=== PATIENT | female | born 1940 | race Caucasian/White ===

== ENCOUNTER 2017-10-17 11:03 | Emergency (ER) | payer MEDICARE, OTHER ==
[~2017-10-17] VITALS: Ht 170.2 cm; Wt 77.1 kg
[~2017-10-17 11:03] MED LIST: ENALAPRIL MALEA10 MG PO; NORCO 5-325 TA1 EACH PO; PREVACID15 M1 PO
[2017-10-17] MEDS ORDERED: TYLENOL325 MG PO (11:22)
[2017-10-17] MEDS ORDERED: DULCOLAX10 MG PR (11:23)
[2017-10-17] MEDS ORDERED: AMLODIPINE BESY10 MG PO (11:23)
[2017-10-17] MEDS ORDERED: LIDOCARE1 EACH TD (11:25)
[2017-10-17] MEDS ORDERED: LISINOPRIL20 MG PO (11:26)
[2017-10-17] MEDS ORDERED: ICY HOT1 EAC1 TOP (11:27)
[2017-10-17] MEDS ORDERED: SERTRALINE HCL25 MG PO (11:28)
[2017-10-17] MEDS ORDERED: MILK OF MA400 MG/5 M PO (11:28)
[2017-10-17] MEDS ORDERED: ULTRAM50 MG PO (11:29)
[2017-10-17] MEDS ORDERED: NORCO 5-325 TA1 EACH PO (12:23)
[2017-10-17] MEDS ORDERED: KEFLEX500 MG PO (12:23)
== END 2017-10-17 12:54 | disposition home or self-care (01) ==
LOC: ED 11:03
DX: K94.22 Gastrostomy infection (principal); I10 Essential (primary) hypertension; K21.9 Gastro-esophageal reflux disease without esophagitis; Z86.73 Personal history of transient ischemic attack (TIA), and cerebral infarction without residual deficits; Z90.710 Acquired absence of both cervix and uterus; Z90.49 Acquired absence of other specified parts of digestive tract; Z88.2 Allergy status to sulfonamides; Z79.899 Other long term (current) drug therapy
CPT/HCPCS: 99283

== ENCOUNTER 2018-07-25 13:42 | Emergency (ER) | payer MEDICARE, OTHER ==
[~2018-07-25] VITALS: Ht 170.2 cm; Wt 70.8 kg
[~2018-07-25 13:42] MED LIST changes: +AMLODIPINE BESY10 MG PO; +DULCOLAX10 MG PR; +ICY HOT1 EAC1 TOP; +KEFLEX500 MG PO; +LIDOCARE1 EACH TD; +LISINOPRIL20 MG PO; +MILK OF MA400 MG/5 M PO; +SERTRALINE HCL25 MG PO; +TYLENOL325 MG PO; +ULTRAM50 MG PO
[2018-07-25] MEDS ORDERED: LINZESS290 MCG PO (14:09)
[2018-07-25] MEDS ORDERED: NEURONTIN100 MG PO (14:09)
[2018-07-25] MEDS ORDERED: PREVIDENT100 ML (14:10)
[2018-07-25] MEDS ORDERED: MIRALAX17 GM PO (14:10)
[2018-07-25] MEDS ORDERED: LIDODERM1 EACH TD (15:28)
[2018-07-25] MEDS ORDERED: COLACE100 MG PO (15:28)
[2018-07-25] MEDS ORDERED: NORCO 5-325 TA1 EACH PO (15:28)
== END 2018-07-25 16:30 | disposition home or self-care (01) ==
LOC: ED 13:42
DX: S32.029A Unspecified fracture of second lumbar vertebra, initial encounter for closed fracture (principal); S22.081A Stable burst fracture of T11-T12 vertebra, initial encounter for closed fracture; W22.8XXA Striking against or struck by other objects, initial encounter; I10 Essential (primary) hypertension; K21.9 Gastro-esophageal reflux disease without esophagitis; Z86.73 Personal history of transient ischemic attack (TIA), and cerebral infarction without residual deficits; Z88.2 Allergy status to sulfonamides; Z88.5 Allergy status to narcotic agent; Z79.899 Other long term (current) drug therapy
CPT/HCPCS: 72100; 99283

== ENCOUNTER 2018-08-23 08:47 | Emergency (ER) | payer MEDICARE, OTHER ==
[~2018-08-23] VITALS: Ht 170.2 cm; Wt 70.8 kg
[~2018-08-23 08:47] MED LIST changes: +COLACE100 MG PO; +LIDODERM1 EACH TD; +LINZESS290 MCG PO; +MIRALAX17 GM PO; +NEURONTIN100 MG PO; +PREVIDENT100 ML
--- OUTSIDE RECORDS SUMMARY | 2018-08-23 08:52 | XMS ---
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 Jose Alejandro has no Care Guidelines for this patient. Mitra VISIT COUNT (12 MO.) [address] T[address] 4 NOTE: Visits indicate total known visits. ED/C VISIT TRACKING (12 MO.) [facility]2018 [facility] TYPE[facility] Emergency COMPLAINT: - BLOOD PRESSURE PROBLEM 07/25/2018 13:43 [facility] [place] TYPE: Emergency COMPLAINT: - BACK PAIN/NO INJURY DIAGNOSES: - Essential (primary) hypertension - Striking against or struck by other objects, initial encounter - Personal history of transient ischemic attack (TIA), and cerebral infarction without residual deficits - Allergy status to sulfonamides status - Allergy status to narcotic agent status - Unspecified fracture of second lumbar vertebra, initial encounter for closed fracture - Other retirement (current) drug therapy - Gastro-esophageal reflux disease without esophagitis - Stable burst fracture of T11-T12 vertebra, initial encounter for closed fracture - Low back pain 10/17/2017 11:03 [facility] [place] TYPE: Emergency COMPLAINT: - ABDOMINAL PAIN DIAGNOSES: - Other retirement (current) drug therapy - Personal history of transient ischemic attack (TIA), and cerebral infarction without residual deficits - Allergy status to sulfonamides status - Essential (primary) hypertension - Acquired absence of other specified parts of digestive tract - Acquired absence of both cervix and uterus - Gastrostomy infection - Left upper quadrant pain - Gastro-esophageal reflux disease without esophagitis 09/28/2017 18:20 [facility] [place] TYPE: Emergency COMPLAINT: - ICH DIAGNOSES: - Essential (primary) hypertension - Dysphagia, unspecified - Muscle weakness (generalized) - Nontraumatic intracranial hemorrhage, unspecified INPATIENT VISIT TRACKING (12 MO.) 10/02/2017 14:36 [facility] [place] TYPE: Orthopedic COMPLAINT: - stroke DIAGNOSES: 0. Cerebral infarction, unspecified 1. Nontraumatic intracerebral hemorrhage in hemisphere, subcortical 2. Compression of brain 3. Pneumonitis due to inhalation of food and vomit 4. Cerebral edema 5. Syndrome of inappropriate secretion of antidiuretic hormone 6. Hemiplegia, unspecified affecting left nondominant side 7. Urinary tract infection, site not specified 8. Atelectasis 9. Dysphagia, unspecified 10. Do not resuscitate 11. HYPERTENSIVE URGENCY 12. Facial weakness 13. Essential (primary) hypertension 14. Dysarthria and anarthria 15. Hypoxemia 16. Other chronic pain 17. Gastro-esophageal reflux disease without esophagitis 18. Diaphragmatic hernia without obstruction or gangrene 19. Unspecified macular degeneration 09/28/2017 19:00 [facility] [place] TYPE: Intensive Care COMPLAINT: - ACUTE HEMORRACIC STROKE DIAGNOSES: - Fever, unspecified - Muscle weakness (generalized) - Essential (primary) hypertension - Urinary tract infection, site not specified - Nontraumatic intracranial hemorrhage, unspecified - Nontraumatic intracranial hemorrhage, unspecified - Dysphagia, unspecified [email or web address]
[2018-08-23] MEDS ORDERED: FOSAMAX70 MG PO (09:00)
[2018-08-23] MEDS ORDERED: IBUPROFEN400 MG PO (09:01)
[2018-08-23] MEDS ORDERED: LINZESS290 MCG PO (09:02)
[2018-08-23] MEDS ORDERED: OMEPRAZOLE20 MG PO (09:03)
[2018-08-23] MEDS ORDERED: LUTEIN20 M1 PO (09:03)
[2018-08-23] MEDS ORDERED: RENA-VITE RX T1 EACH PO (09:04)
[2018-08-23] MEDS ORDERED: CIPRO500 MG PO (10:54)
--- NOTE | 2018-08-23 21:00 | EKG ---
[facility] [address] [facility] [place] [address] Signed Normal sinus rhythm Minimal voltage criteria for LVH, may be normal variant Borderline ECG No previous ECGs available Confirmed by VARGAS ROJAS MD ([id number]) on 08/23/2018 9:00:31 PM Electronically Signed By: VARGAS ROJAS MD 08/23/18 2100 PATIENT NAME: YRN FINLEY Electrocardiogram DATE OF : 36 PHYSICIAN: VARGAS ROJAS MD REPORT #: [id number] REPORT IS CONFIDENTIAL AND NOT TO BE RELEASED WITHOUT AUTHORIZATION
== END 2018-08-23 11:35 | disposition home or self-care (01) ==
LOC: ED 08:47
DX: I10 Essential (primary) hypertension (principal); N39.0 Urinary tract infection, site not specified; K21.9 Gastro-esophageal reflux disease without esophagitis; Z88.2 Allergy status to sulfonamides; Z88.5 Allergy status to narcotic agent; Z79.899 Other long term (current) drug therapy
CPT/HCPCS: 70450; 71045; 80053; 81001; 85025; 87077; 87088; 87186; 93005; 93010; 96374; 96375; 99284; J0696

== ENCOUNTER 2019-01-20 08:35 | Emergency (ER) | payer MEDICARE, OTHER ==
[~2019-01-20] VITALS: Ht 170.2 cm; Wt 70.8 kg
[~2019-01-20 08:35] MED LIST changes: +CIPRO500 MG PO; +FOSAMAX70 MG PO; +IBUPROFEN400 MG PO; +LUTEIN20 M1 PO; +OMEPRAZOLE20 MG PO; +RENA-VITE RX T1 EACH PO
--- OUTSIDE RECORDS SUMMARY | 2019-01-20 08:38 | XMS ---
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 E.D. VISIT COUNT (12 MO.) 3 JESUS MANUEL [facility] TOTAL 3 NOTE: Visits indicate total known visits. 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 [place] TYPE: Emergency COMPLAINT: - BACK PAIN/NO [...] initial encounter for closed fracture - Other detention (current) drug therapy - Gastro-esophageal reflux disease without esophagitis - Stable burst fracture of T11-T12 vertebra, initial encounter for closed fracture - Low back pain INPATIENT VISIT TRACKING (12 MO.) No inpatient visits to display in this time frame [email or web address]
[2019-01-20] MEDS ORDERED: NORCO 5-325 TA1 EACH PO (10:51)
[2019-01-20] MEDS ORDERED: CIPRO500 MG PO (12:24)
== END 2019-01-20 12:35 | disposition home or self-care (01) ==
LOC: ED 08:35
DX: S39.92XA Unspecified injury of lower back, initial encounter (principal); I10 Essential (primary) hypertension; K21.9 Gastro-esophageal reflux disease without esophagitis; Z86.73 Personal history of transient ischemic attack (TIA), and cerebral infarction without residual deficits; Z90.710 Acquired absence of both cervix and uterus; Z88.2 Allergy status to sulfonamides; Z88.5 Allergy status to narcotic agent; Z79.899 Other long term (current) drug therapy; W18.40XA Slipping, tripping and stumbling without falling, unspecified, initial encounter
CPT/HCPCS: 72100; 81001; 87077; 87088; 87186; 96372; 99283-25; J1630; J1885

== ENCOUNTER 2020-06-19 18:48 | Emergency (ER) | payer MEDICARE, OTHER ==
[~2020-06-19] VITALS: Ht 170.2 cm; Wt 82.1 kg
[2020-06-19] MEDS ORDERED: CITALOPRAM HBR20 MG PO (20:12)
[2020-06-19] MEDS ORDERED: GABAPENTIN100 MG PO (20:13)
[2020-06-19] MEDS ORDERED: METAMUCIL0.52 GM PO (20:14)
[2020-06-19] MEDS ORDERED: AMLODIPINE BESYL5 MG PO (20:15)
[2020-06-19] MEDS ORDERED: CEFUROXIME250 MG PO (20:16)
[2020-06-19] MEDS ORDERED: OXYBUTYNIN CHLOR5 MG PO (20:17)
[2020-06-19] MEDS ORDERED: KEFLEX500 MG PO (21:16)
[2020-06-19] MEDS ORDERED: ONDANSETRON ODT4 MG SL (21:16)
--- NOTE | 2020-06-20 19:07 | EKG ---
[facility] [address] [place] [address] Signed Sinus bradycardia with premature atrial complexes Otherwise normal ECG When compared with ECG of 23-AUG-2018 08:56, premature atrial complexes are now present Confirmed by TONEY WATSON MD ([id number]) on 06/20/2020 7:07:08 PM Electronically Signed By: TONEY WATSON MD 06/20/20 1907 PATIENT NAME: YRN FINLEY Electrocardiogram DATE OF : 36 PHYSICIAN: TONEY WATSON MD REPORT #: [id number] REPORT IS CONFIDENTIAL AND NOT TO BE RELEASED WITHOUT AUTHORIZATION
== END 2020-06-19 22:11 | disposition home or self-care (01) ==
LOC: ED 18:48
PROC: 0T9B70Z Drainage of Bladder with Drainage Device, Via Natural or Artificial Opening (ICD-10-PCS; principal; 2020-06-19)
DX: N39.0 Urinary tract infection, site not specified (principal); I10 Essential (primary) hypertension; K21.9 Gastro-esophageal reflux disease without esophagitis; Z88.2 Allergy status to sulfonamides; Z88.5 Allergy status to narcotic agent; Z79.899 Other long term (current) drug therapy
CPT/HCPCS: 51701; 74022; 80053; 81001; 83690; 84484; 85025; 93005; 93010; 99284-25; A9270; C1894; J7040

== ENCOUNTER 2020-09-01 14:05 | Inpatient (IN) | payer MEDICARE, OTHER ==
[~2020-09-01] VITALS: Ht 170.2 cm; Wt 84.1 kg
[~2020-09-01 14:05] MED LIST changes: +AMLODIPINE BESYL5 MG PO; +CEFUROXIME250 MG PO; +CITALOPRAM HBR20 MG PO; +GABAPENTIN100 MG PO; +METAMUCIL0.52 GM PO; +ONDANSETRON ODT4 MG SL; +OXYBUTYNIN CHLOR5 MG PO; -TYLENOL325 MG PO
[2020-09-01] MEDS ORDERED: VITAMIN D3 COM1 EACH PO ×2 (14:14→14:16)
[2020-09-01] MEDS ORDERED: NAPROSYN500 MG PO (14:17)
--- NOTE | 2020-09-01 19:35 | NUR ---
TELEPHONE REPORT RECEIVED FROM DAYSHIFT ED FATIMAH DEL CID. QUESTIONS ANSWERED, AWAITING PT'S ARRIVAL.
--- NOTE | 2020-09-01 20:42 | NUR ---
PT ARRIVED TO FLOOR WITH FAMILY AT BEDSIDE. SHE WAS MOVED OVER TO BED 3PA. RR IS EVEN AND NONLABORED. PT STATES SHE FEELS WEAK. 2PA TO BSC AND BACK TO BED. SHE IS TUCKED IN WITH WARM BLANKETS AND HAS WATER AND TEA AT BEDSIDE. ADMISSION HX IS NOW COMPLETE. NS IS INFUSING AT 75MLS/HR. PT DENIES FURTHER NEEDS. CALL LIGHT IS CLOSE AND BED ALARM IS ON.
--- NOTE | 2020-09-01 21:45 | NUR ---
ASSESSMENT COMPLETE, SCHEDULED COLACE HELD PER CLINICAL JUDGEMENT. SCHEDULED GABAPENTIN AND PRN TYLENOL GIVEN FOR 5/10 PAIN R/T HEADACHE. NO NAUSEA REPORTED. IV FLUIDS INFUSING, SITE WNL. HOME COMPRESSION SOCKS IN PLACE, PEDAL AND RADIAL PULSES NOTED. NO ADDITIONAL NEEDS, CALL LIGHT IN REACH. CHAPSTICK PROVIDED.
--- NOTE | 2020-09-02 00:26 | NUR ---
PT RESTING IN BED WITH EYES CLOSED. IV FLUIDS INFUSING, NO DISTRESS OR PAIN NOTED. RESPIRATION REMAIN WNL AND UNLABORED. CALL LIGHT IN REACH.
--- NOTE | 2020-09-02 00:52 | NUR ---
PT CALLED, UP 2PA TO BSC VIA STAND PIVOT. PT TOLERATED WELL AND BACK IN BED. WARM BLANKET PROVIDED, CALL LIGHT IN REACH.
--- NOTE | 2020-09-02 02:57 | NUR ---
CAME TO ROOM WITH RN, TOOK VITALS AND I&Os, BOOSTED PT IN BED, FRESH ICE WATER GIVEN, WARM BLANKET PROVIDED, NO FURTHER REQUEST AT THIS TIME
--- NOTE | 2020-09-02 03:00 | NUR ---
ASSESSMENT COMPLETE, NO NEW CHANGES OR CONCERNS. VSS, PT ON RA. DENIES PAIN OR NAUSEA, BUT REPORTS SOME DISCOMFORT IN BACK. RESOLVED AFTER REPOSITIONING. IV FLUIDS INFUSING, SITE WNL. WARM BLANKET GIVEN, NO FURTHER NEEDS. FRESH ICE WATER AND CALL LIGHT IN REACH.
--- NOTE | 2020-09-02 07:28 | NUR ---
Pt in bed resting, respirations even and non labored. Pt reports she is doing well this morning. Pain in back is reported to be tolerable. Encouraged pt to call if she has any needs. Call light within reach.
--- NOTE | 2020-09-02 07:30 | NUR ---
PATIENT RESTING IN BED. PATIENT'S HANDS AND FACE WASHED. PATIENT'S BREAKFAST ORDERED. WHITE BOARD UPDATED. CALL LIGHT WITHIN REACH. NO OTHER NEEDS AT THIS TIME
--- NOTE | 2020-09-02 09:10 | NUR ---
PATIENT RESTING IN BED. PATIENT INCONTINENT OF URINE. PERICARE PERFORMED. TWO PERSON ASSISTING. VITAL SIGNS AND I&O DONE. CALL LIGHT WITHIN REACH. NO OTHER NEEDS AT THIS TIME
--- NOTE | 2020-09-02 11:59 | NUR ---
2PA WITH RETAIL OPERATIONS SPECIALIST STELLA PIVOT TO BSC. VERY LITTLE VOID. BACK TO BED.CALL LIGHT IN REACH, PATIENT HAS HEADACHE, REQUESTED AN EMESIS BAG.
--- NOTE | 2020-09-02 13:29 | NUR ---
PATIENT RESTING IN BED. VITAL SIGNS AND I&O DONE. CALL LIGHT WITHIN REACH. NO OTHER NEEDS AT THIS TIME
--- NOTE | 2020-09-02 13:36 | EKG ---
[facility] [address] [facility] [place] [address] Signed Normal sinus rhythm Possible Anterior infarct , age undetermined Abnormal ECG When compared with ECG of 19-JUN-2020 19:47, premature atrial complexes are no longer present Confirmed by TOENY WATSON MD ([id number]) on 09/02/2020 1:36:01 PM Electronically Signed By: TONEY WATSON MD 09/02/20 1336 PATIENT NAME: YRN FINLEY Electrocardiogram DATE OF : 36 PHYSICIAN: TONEY WATSON MD REPORT #: [id number] REPORT IS CONFIDENTIAL AND NOT TO BE RELEASED WITHOUT AUTHORIZATION
--- NOTE | 2020-09-02 15:00 | NUR ---
CALL LIGHT ANSWERED. PATIENT ASKS TO USE THE BASE COMMODE. TWO PERSON ASSISTING. PATIENT INCONTINENT OF URINE. PATIENT IS TOO WEAK AND WE HAD TO CALL FOR EXTRA HELP TO PUT THE PATIENT BACKS IN BED. RN IN ROOM. PATIENT THROWED UP. PATIENT HAD 100.2 TEMPERATURE. RN NOTIFIED. CALL LIGHT WITHIN REACH. NO OTHER NEEDS AT THIS TIME
[2020-09-02] MEDS ORDERED: LISINOPRIL40 MG PO (15:08)
--- NOTE | 2020-09-02 15:10 | NUR ---
2PA WITH JAY DOUGLAS [place] [facility] PATIENT VERY HOT TO TOUCH. PATIENT BECAME VERY WEAK WHILE GETTING OUT OF BED. WAS BARELY ABLE TO HOLD HERSELF WITH LEGS, NOR ABLE TO MOVE HER FEET UNDERSELF. FEAR OF DROPPING HER, [facility] CALLED FOR A 3RD PERSON. FATIMAH SHARMAAS IN TO HELP. PATIENT REPOSITIONED IN BED. FATIMAH ALAS IN ROOM NOW. TEMP 100.2. PATIENT REPORTS HEADACHE AGAIN AND USED EMESIS BAG-CLEAR LIQUID. THIS WAS VERY DIFFERENT BEHAVIOR THAN PATIENT HAD ANY TIME WE WERE PREVIOUSLY IN ROOM.
--- NOTE | 2020-09-02 15:19 | NUR ---
Called into patients room from fire fighters dispatcher staff for concern of change of physical status. Pt assessed by this RN; alert and oriented x4, generalized weakness noted. Temp of 100.2f, vs-153/71, m91, p99, 92% on 2l. PT denies sob and or chest pain. Focused neuro done; baseline left sided weakness noted, right upper/lower is strenght in intact and strong. PT has no facial droop and speaks appropriately to this RN. Dr. Garrido notified at this time. Suction set up at this time.
--- NOTE | 2020-09-02 15:19 | NUR ---
Admin Tylenol 650mg po for temp of 100.2.
--- NOTE | 2020-09-02 17:03 | NUR ---
PATIENT RESTING IN BED. GRANDDAUGHTER IN ROOM. VITAL SIGNS AND I&O DONE. LOW OXYGEN SATURATION. RN NOTIFIED. CALL LIGHT WITHIN REACH. NO OTHER NEEDS AT THIS TIME
--- NOTE | 2020-09-02 19:15 | NUR ---
SHIFT REPORT RECEIVEDF MYLA ALAS AT BEDSIDE. PT AWAKE AND RESTING IN BED, FAMILY IN ROOM. IV FLUIDS INFUSING, SITE WNL. NO ADDITIONAL NEEDS AT THIS TIME. BOARD UPDATED AND CALL LIGHT IN REACH.
--- NOTE | 2020-09-02 21:25 | NUR ---
PT CALLED TO GET ON THE BSC, 2PA PIVOT PT WITH HELP OF JAY BERMUDEZ, PROVIDED PERICARE AND CHANGE OF ATTENDS, GOT PT BK TO BED, BOOSTED PT UP, ADDED PILLOW FOR COMFORT, TOOK VITALS AND I&Os DONE, FRESH ICE WATER AND WARM BLANKET PROVIDED, NO FURTHER REQUEST AT THIS TIME
--- NOTE | 2020-09-02 22:20 | NUR ---
ASSESSMENT COMPLETE, SCHEDULED MEDS GIVEN ALONG WITH PRN TYLENOL FOR BACK PAIN AND HEADACHE. IV FLUIDS INFUSING, SITE WNL. NO NAUSEA REPORTED, PT REPORTS SHE DIDN'T EAT DINNER, SNACK PROVIDED. PT UP 2PA WITH FWW TO BSC TO VOID AND BACK TO BED. NO ADDITIONAL NEEDS, CALL LIGHT IN REACH.
--- NOTE | 2020-09-03 01:21 | NUR ---
CALL LIGHT ANSWERED, PT UP 2PA TO BSC TO VOID. INCONTINENT OF URINE. FANNY CARE AND ATTENDS CHANGED. PT BACK TO BED, ASSESSMENT COMPLETE. NO NEW CAHNGES OR CONCERNS. IV FLUIDS INFUSING, SITE WNL. CALL LIGHT IN REACH.
--- NOTE | 2020-09-03 04:17 | NUR ---
PT CALLED O GET ON THE BSC, 2PA PIVOT TO BSC, PROVIDED PT A CHANGE OF ATTENDS, LET PT SIT FOR A COUPKLE MINS, PT CALLED ONCE READY, GOT PT UP, PERICARE DONE, PIVOT BK TO BED, PT IS IN BED AT THIS TIME WITH FRESH ICE WATER AND WARM BLANKET, CALL LIGHT IN PLACE, NO FURTHER REQUESTS
--- NOTE | 2020-09-03 04:24 | NUR ---
VSS AND I&O'S COMPLETE. FRESH WATER AT BEDSIDE. NO ADDITIONAL NEEDS. CALL LIGHT IN REACH. IV FLUIDS INFUSING, SITE WNL. PUMP ALSO CLEARED.
--- NOTE | 2020-09-03 08:00 | NUR ---
PATIENT SLEEPING. WHITE BOARD UPDATED. CALL LIGHT WITHIN REACH. NO OTHER NEEDS AT THIS TIME
--- NOTE | 2020-09-03 09:55 | NUR ---
PATIENT SITTING UP IN BED. VITAL SIGNS AND I&O DONE. CALL LIGHT WITHIN REACH. NO OTHER NEEDS AT THIS TIME
--- NOTE | 2020-09-03 10:10 | NUR ---
Spoke with Michelle and she lives at [facility]. She states she as 1 person assist for her care. She uses a wc, pole in the bathroom, raised toilet seat and a shower chair. She would like to return to [facility], but states she is very weak. Per [address] Garr[address], she will order PT to work with pt to determine need. Received call from [facility] for update, informed of the above. Let them know I will call Sheryl SHERIDAN, when PT has completed assessment.
--- NOTE | 2020-09-03 12:07 | NUR ---
Patient in bed at this time, respirations are even and non labored. Pt reports feeling a bit better today. Water and coffee replenished at this time. Personal supplies and call light within reach.
[2020-09-03] MEDS ORDERED: COLACE100 MG PO (13:14)
[2020-09-03] MEDS ORDERED: VITAMIN D325 MC3 PO (13:15)
[2020-09-03] MEDS ORDERED: TYLENOL325 MG PO (13:18)
[2020-09-03] MEDS ORDERED: ARTIFICIAL TEAR15 M3 OU (13:18)
[2020-09-03] MEDS ORDERED: MILK OF MA400 MG/5 M PO (13:19)
[2020-09-03] MEDS ORDERED: ZOFRAN4 MG PO (13:20)
[2020-09-03] MEDS ORDERED: MIRALAX17 GM PO (13:20)
[2020-09-03] MEDS ORDERED: SENNA8.6 MG PO (13:21)
--- NOTE | 2020-09-03 13:23 | NUR ---
Medications reconciled using pharmacy records and MARS from facility
--- NOTE | 2020-09-03 13:30 | NUR ---
Spoke with Sheryl, updated Dr. Garrido is not discharging pt today and PT worked with pt. RN present during call and states pt pivot transferred without problem with one person. Sheryl will assess pt tomorrow for return to [facility]. Pt must be a 1 person assist for them to care for the patient.
--- NOTE | 2020-09-03 13:39 | NUR ---
PATIENT RESTING IN BED. VIASITOR IN ROOM. VITAL SIGNS AND I&O DONE. CALL LIGHT WITHIN REACH. NO OTHER NEEDS AT THIS TIME
--- NOTE | 2020-09-03 14:36 | NUR ---
PATIENT RESTING IN BED. PATIENT ASSISTED TO USE THE BASE COMMODE. PATIENT INCONTINENT OF URINE. PERICARE PERFORMED. TWO PERSON ASSISTING WITH WALKER. PATIENT BACKS TO BED. ICE WATER GIVEN. CALL LIGHT WITHIN REACH. NO OTHER NEEDS AT THIS TIME
--- NOTE | 2020-09-03 16:35 | NUR ---
Iza dressing reinforced with obsite due to orange flashing; green light flashing post reinforcement. Dressing is CDI. Polar ice intact to left hip. Vital signs are stable. Pt remains on room air, respirations even and non labored. CPOX intact, 96%. Pt voided q/s chente colored urine, no odor noted. Spinal resolved; block to left hip still causing reported numbness from left knee up to hip. CMS intact. Personal supplies and call light within reach.
--- NOTE | 2020-09-03 17:13 | NUR ---
Pt in bed, alert and oriented x4. Pt denies pain at this time. IV site looks good, IV fluids infusing without difficulties. Pt denies needs. Personal supplies and call light within reach.
--- NOTE | 2020-09-03 17:33 | NUR ---
PATIENT SITTING UP IN BED. VITAL SIGNS AND I&O DONE. COFFEE GIVEN. CALL LIGHT WITHIN REACH. NO OTHER NEEDS AT THIS TIME
--- NOTE | 2020-09-03 19:10 | NUR ---
SHIFT REPORT RECEIVED FROM NURSE ALAS. PT UP IN BED WATCHING TV. PT COMPLAINS OF A HEADACHE. PT RECEIVED TYLENOL AT 1600 AND IT IS NOT AVAILABLE AGAIN. PT IS OFFERED NORCO ALTHOUGH PT DECLINES THE NARCOTIC AT THIS TIME BECAUSE HEADACHE IS "NOT THAT BAD". NO FURTHER NEEDS AT THIS TIME. CALL LIGHT WITHIN REACH
--- NOTE | 2020-09-03 19:20 | PATH ---
[facility] [address] [place], [place] [address] Signed ORDERING PHYSICIAN: Demario Hubbard MD PATIENT NAME: YRN FINLEY GENDER: Tonio : 1940 Prior History: No cases found. SPECIMEN(S): No Source Given MOLECULAR PATHOLOGY RESULTS: SARS-CoV-2 Not Detected ADDITIONAL NOTES.: The Lyons Fusion SARS-CoV-2 Assay is a multiplex real-time PCR (RT-PCR) in vitro diagnostic test intended for the qualitative detection of RNA from SARS-CoV-2 from individuals who meet COVID-19 clinical and/or epidemiological criteria. In general, SARS-CoV-2 RNA can be detected during the acute phase of infection. Positive results indicate the presence of SARS-CoV-2 RNA. Clinical correlation with patient history and other diagnostic information is necessary to determine patient infection status. Positive results do not rule out bacterial infection or co-infection with other viruses. Negative results do not preclude SARS-CoV-2 infection and should not be used as the sole basis for patient management decisions. Negative results must be combined with other clinical observations, patient history, and epidemiological information. The Lyons Fusion SARS-CoV-2 Assay is not yet approved or cleared by the [place] FDA. When there are no FDA-approved or cleared tests available, and other criteria are met, FDA can make tests available under an emergency access mechanism called an Emergency Use Authorization (EUA). The EUA for this test is supported by the Pricing Clerk of Health and Human Service's (HHS's) declaration that circumstances exist to justify the emergency use of in vitro diagnostics for the detection and/or diagnosis of the virus that causes COVID-19. This EUA will remain in effect for the duration of the COVID-19 declaration justifying emergency of IVDs, unless it is terminated or revoked by FDA, after which the test may no longer be used. The Lyons Fusion SARS-CoV-2 Assay is for use only under EUA PATIENT NAME: YRN FINLEY PATHOLOGY DATE OF : 36 REPORT #: [id number] PHYSICIAN: ALMA PATHOLOGY PCP: YARA RAMIREZ REPORT IS CONFIDENTIAL AND NOT TO BE RELEASED WITHOUT AUTHORIZATION [facility] [address] [place], [place] [address] Signed in laboratories certified under the Clinical Laboratory Improvement Amendments of 1988 (CLIA) to perform high complexity tests. [facility] is certified under CLIA to perform high complexity clinical laboratory testing. PERFORMING LABORATORY.: Molecular testing was performed by [facility] [place] [address] (Computer Security Coordinator: Jhony Carmona D.O.; CLIA#: [id number]) Diagnostician: System Interface Pathologist Electronically Signed 09/03/2020 Copies: ~ PATIENT NAME: YRN FINLEY PATHOLOGY DATE OF : 36 REPORT #: [id number] PHYSICIAN: ALMA ANDERSON PCP: YARA RAMIREZ REPORT IS CONFIDENTIAL AND NOT TO BE RELEASED WITHOUT AUTHORIZATION
--- NOTE | 2020-09-03 20:26 | NUR ---
CALL LIGHT ANSWERED. 1 PA TO THE BEDSIDE COMMODE. PATIENT IS INCONTINENT AND VOIDED 125ML IN THE COMMODE. PATIENT IS BACK IN BED. COFFEE AND CRACKERS PROVIDED PER PATIENT'S REQUEST. CALL LIGHT WITHIN REACH.
--- NOTE | 2020-09-03 20:45 | NUR ---
ASSESSMENT COMPLETE. PT IN BED AND TALKATIVE. VSS. ASPERCREME APPLIED TO LOWER BACK PER PT'S REQUEST. INFUSION INFUSING ORDERED. PT GETS UP TO BSC WITH 1PA. NO FURTHER NEEDS AT THIS TIME.
--- NOTE | 2020-09-03 21:20 | NUR ---
PATIENT CALLED TO USE THE BEDSIDE COMMODE. 1 PA WITH WALKER. PATIENT IS INCONTINENT AND VOIDED 100 ML. PATIENT IS BACK IN BED. SCD'S ON. CALL LIGHT IN REACH. BED ALARM ON FOR SAFETY.
--- NOTE | 2020-09-03 22:28 | NUR ---
ANSWERED CALL LIGHT. PATIENT WAS UP TO THE BEDSIDE COMMODE. PATIENT IS BACK IN BED. CALL LIGHT IN REACH. SCD'D ON. BED ALARM ON FOR SAFETY.
--- NOTE | 2020-09-03 23:51 | NUR ---
ASSISTED PATIENT TO USE THE BEDSIDE COMMODE USING WALKER. PATIENT IS BACK IN BED. PATIENT WANTING THE SDC OFF STATED IT MAKES ME URINATE MORE AND WAKES ME UP. i WANT TO GET SOME SLEEP". PRIMARY RN NOTIFIED. BED ALARM ON FOR SAFETY.TV OFF. PATIENT WANTS THE ROOM LIGHT ON.
--- NOTE | 2020-09-04 00:47 | NUR ---
CALL LIGHT ANSWERED. PT UP TO BSC WITH 1PA. NEW IV FLUID BAG HUNG. EYE DROP APPLIED TO PT'S RIGHT EYE REQUESTED BY PT. (PT'S OWN MEDS; SALINE DROPS). NO FURTHER NEEDS AT THIS TIME. CALL LIGHT WITHIN REACH
--- NOTE | 2020-09-04 02:30 | NUR ---
PT UP TO BSC WITH SBA. PT REQUESTS PRN TYLENOL FOR HEADACHE PAIN WHICH IS ADMINISTERED AT THIS TIME. NO FURTHER REQUESTS AT THIS TIME.
--- NOTE | 2020-09-04 04:30 | NUR ---
CALL LIGHT ANSWERED. PT UP TO BSC WITH SBA. ASSESSMENT COMPLETE. NO FURTHER NEEDS AT THIS TIME.
--- NOTE | 2020-09-04 05:26 | NUR ---
PT HAD A RESTLESS NIGHT DUE TO MULTIPLE TIMES BEING UP TO VOID. PT URINATES 100-300ML URINE PLUS URINE LEAKAGE IN DEPENDS. PT REQUESTED PRN TYLENOL ONE TIME THIS SHIFT FOR HEADACHE. PT STATES SHE FEELS STRONGER TODAY WITH TRANSFER AMBULATION AND NURSING STAFF WOULD AGREE PT IS NOW A 1PA TO BSC.
--- NOTE | 2020-09-04 07:10 | NUR ---
In room for bedside shiftchange report from nightshift RN. Pt lying in bed, eyes closed, breathing even and unlabored. Pt report noted that pt had been up and down all night getting up to urinate, but had an otherwise uneventful evening. No concerns for pt care, nightshift RN anticipates pt to be DCd today if MD qualifies her.
--- NOTE | 2020-09-04 08:00 | NUR ---
PATIENT RESTING IN BED. WHITE BOARD UPDATED. PATIENT'S HANDS AND FACE WASHED. PATIENT'S BREAKFAST ORDERED. CALL LIGHT WITHIN REACH. NO OTHER NEEDS AT THIS TIME
--- NOTE | 2020-09-04 08:50 | NUR ---
In room for morning meds and assessment. Pt lying in bed, pleasant and cooperative upon greeting and care. Pt verbalized some unwillingness to get up to the chair for breakfast, but after education and encouragement, complied. Pt to commode, voided. Pt antonina care done. Pt up to chair. Pt given blankets and pillows to comfort. Pt demonstrated proper use of I.S. to 750. Pt able to take meds without difficulty. Pt assessment done, VSS, see charting. Pt left sitting up in chair, table over legs, call light within reach.
--- NOTE | 2020-09-04 09:36 | NUR ---
PATIENT SITTING UP IN CHAIR. VITAL SIGNS AND I&O DONE. CALL LIGHT WITHIN REACH. NO OTHER NEEDS AT THIS TIME
--- NOTE | 2020-09-04 10:22 | NUR ---
In room for rounding. Pt sitting up, reclining in chair, table and call light beside her. Pt given warm blankets and repositioned to comfort. Pt reports no pain or nausea or further needs at this time. Pt left sitting up, reclining in chair, table and call light within reach.
--- NOTE | 2020-09-04 10:45 | NUR ---
Notified by Teresita SHERIDAN, [facility] has not come to assess Michelle for return. Per Teresita and PT pt is a 1 person assist. Called and spoke with Sheryl from [facility], she states if pt is 1 person assist she will not need eval. Staff notified pt can be discharged to [facility].
--- NOTE | 2020-09-04 11:04 | NUR ---
CALL LIGHT ANSWERED. PATIENT SITTING UP IN CHAIR. PATIENT INCONTINENT OF URINE. PATIENT USES THE BASE COMMODE. PERICARE PERFORMED. TWO PERSON ASSISTING. ADULT PULL UP CHANGED. CALL LIGHT WITHIN REACH. NO OTHER NEEDS AT THIS TIME
[2020-09-04] MEDS ORDERED: LEVOFLOXACIN500 MG PO (11:09)
--- NOTE | 2020-09-04 11:41 | NUR ---
In room to prep pt for DC and DC IV. Pt verbalized understaning of DC instructions, medications, and follow-up appt plans. Pt given written instructions for herself and her care facility as well. Pt IV was DCd WNL, catheter intact with no excess bleeding noted, pressure dressing applied. Pt dressed by TALENT ACQUISITION LEAD, asssisted to wheelchair and taken out. Pt reports no pain or nausea at this time. Pt denies dizziness on standing.
== END 2020-09-04 11:47 | disposition home or self-care (01) | DRG 690 ==
LOC: ED 14:05 → MS 19:18
PROVIDERS: ADMIT Internal Medicine; ATTEND Internal Medicine
DX: N39.0 Urinary tract infection, site not specified (principal); N17.9 Acute kidney failure, unspecified; I69.354 Hemiplegia and hemiparesis following cerebral infarction affecting left non-dominant side; Z20.828 Contact with and (suspected) exposure to other viral communicable diseases; B96.5 Pseudomonas (aeruginosa) (mallei) (pseudomallei) as the cause of diseases classified elsewhere; I10 Essential (primary) hypertension; K21.9 Gastro-esophageal reflux disease without esophagitis; K59.09 Other constipation; H35.30 Unspecified macular degeneration; Z78.0 Asymptomatic menopausal state; Z88.2 Allergy status to sulfonamides; Z88.5 Allergy status to narcotic agent; Z79.1 Long term (current) use of non-steroidal anti-inflammatories (NSAID); Z79.83 Long term (current) use of bisphosphonates; Z79.891 Long term (current) use of opiate analgesic; Z79.899 Other long term (current) drug therapy
CPT/HCPCS: 36415; 51798; 71045; 76770; 80048; 80053; 81001; 83735; 84484; 85025; 87077; 87088; 87186; 93005; 93010; 96361; 96374; 97110; 97116; 97162; 99285-25; C9803; J0696; J7030

== ENCOUNTER → 2023-04-27 | Emergency (ER) | payer MEDICARE, OTHER ==
[~2023-04-27] VITALS: Ht 170.2 cm; Wt 84.1 kg
[~2023-04-27] MED LIST changes: +ARTIFICIAL TEAR15 M3 OU; +LEVOFLOXACIN500 MG PO; +LISINOPRIL40 MG PO; +NAPROSYN500 MG PO; +SENNA8.6 MG PO; +TYLENOL325 MG PO; +VITAMIN D3 COM1 EACH PO; +VITAMIN D325 MC3 PO; +ZOFRAN4 MG PO
[2023-04-27 00:50] VITALS: BP 178/93
== END ==
LOC: ED 00:49
DX: T83.098A Other mechanical complication of other urinary catheter, initial encounter (principal); I10 Essential (primary) hypertension; K21.9 Gastro-esophageal reflux disease without esophagitis; Z88.2 Allergy status to sulfonamides; Z88.5 Allergy status to narcotic agent; Z79.899 Other long term (current) drug therapy
CPT/HCPCS: 51798; 81001; 99283-25

== ENCOUNTER 2023-08-10 09:27 | Emergency (ER) | payer MEDICARE, OTHER ==
[~2023-08-10] VITALS: Ht 170.2 cm; Wt 79.4 kg
--- OUTSIDE RECORDS SUMMARY | 2023-08-10 09:31 | XMS ---
PreManage Notification: YRN FINLEY Security Healthcare Administrative Assistant Events No recent Security Events currently on file CRITERIA MET - PDMP CARE PROVIDERS ArianaEdinson Corrosion Engineer/Residence Life Coordinator 12/31/2020-Current PHONE: [phone] YARA RAMIREZ Nurse Practitioner: Family 08/23/2018-Current PHONE: Unknown -Kameron DMD Dentist: Campus Administrative Assistant Current PHONE: [phone] CLAUDIA HAQUE [facility] Current PHONE: Unknown MIRIAM MALAGON [facility]: [facility] COMMUNITY PHONE: Unknown [facility] Current PHONE: Unknown Jose Alejandro has no Care Guidelines for this patient. Mitra VISIT COUNT (12 MO.) 2 JESUS MANUEL [facility] TOTAL 2 NOTE: Visits indicate total known visits. ED/UCC VISIT TRACKING (12 MO.) 08/10/2023 09:28 [facility] TYPE: Emergency COMPLAINT: - FALL 04/27/2023 00:50 [facility] TYPE: Emergency COMPLAINT: - URINE RETENTION DIAGNOSES: - Allergy status to narcotic agent - Allergy status to sulfonamides - Essential (primary) hypertension - Gastro-esophageal reflux disease without esophagitis - Other senior living (current) drug therapy - Other mechanical complication of other urinary catheter, initial encounter INPATIENT VISIT TRACKING (12 MO.) No inpatient visits to display in this time frame [email or web address]
[2023-08-10 13:37] VITALS: BP 161/77
== END 2023-08-10 13:40 | disposition home or self-care (01) ==
LOC: ED 09:27
DX: S32.029A Unspecified fracture of second lumbar vertebra, initial encounter for closed fracture (principal); S32.039A Unspecified fracture of third lumbar vertebra, initial encounter for closed fracture; S32.049A Unspecified fracture of fourth lumbar vertebra, initial encounter for closed fracture; S22.089A Unspecified fracture of T11-T12 vertebra, initial encounter for closed fracture; S80.02XA Contusion of left knee, initial encounter; W19.XXXA Unspecified fall, initial encounter; I10 Essential (primary) hypertension; K21.9 Gastro-esophageal reflux disease without esophagitis; I69.354 Hemiplegia and hemiparesis following cerebral infarction affecting left non-dominant side; Z88.2 Allergy status to sulfonamides; Z79.899 Other long term (current) drug therapy
CPT/HCPCS: 70450; 72100; 73560; 73610

== ENCOUNTER 2024-12-31 21:14 | Emergency (ER) | payer MEDICARE, OTHER ==
[~2024-12-31] VITALS: Ht 170.2 cm; Wt 77.1 kg
[2024-12-31] MEDS ORDERED: LIDOCAINE 2% VISCOUS 6 ML SYR TOP ONE (21:30)
[2024-12-31 22:30] VITALS: BP 163/74
== END 2024-12-31 22:30 | disposition home or self-care (01) ==
LOC: ED 21:14
DX: T83.098A Other mechanical complication of other urinary catheter, initial encounter (principal); I10 Essential (primary) hypertension; K21.9 Gastro-esophageal reflux disease without esophagitis; I69.354 Hemiplegia and hemiparesis following cerebral infarction affecting left non-dominant side; Z88.2 Allergy status to sulfonamides; Z88.5 Allergy status to narcotic agent; Z79.83 Long term (current) use of bisphosphonates; Z79.899 Other long term (current) drug therapy
CPT/HCPCS: 51702; 99283-25

== ENCOUNTER 2025-01-13 17:24 | Emergency (ER) | payer MEDICARE, OTHER ==
[~2025-01-13] VITALS: Ht 170.2 cm; Wt 76.7 kg
[2025-01-13] MEDS ORDERED: AMOXICILLIN 500 MG CAP PO ONE (19:00)
[2025-01-13] MEDS ORDERED: ACETAMINOPHEN 500 MG TAB PO ONE (19:30)
[2025-01-13] MEDS ORDERED: IBUPROFEN 600 MG TAB PO ONE (19:30)
[2025-01-13 19:34] VITALS: BP 176/87
== END 2025-01-13 19:52 | disposition home or self-care (01) ==
LOC: ED 17:24
DX: T16.1XXA Foreign body in right ear, initial encounter (principal); W44.8XXA Other foreign body entering into or through a natural orifice, initial encounter; H66.91 Otitis media, unspecified, right ear; I10 Essential (primary) hypertension; K21.9 Gastro-esophageal reflux disease without esophagitis; I69.954 Hemiplegia and hemiparesis following unspecified cerebrovascular disease affecting left non-dominant side; Z88.2 Allergy status to sulfonamides; Z88.5 Allergy status to narcotic agent; Z79.899 Other long term (current) drug therapy
CPT/HCPCS: 69200; 99283; A9270

== ENCOUNTER 2025-01-26 20:30 | Emergency (ER) | payer MEDICARE, OTHER ==
[~2025-01-26] VITALS: Ht 170.2 cm; Wt 79.8 kg
[~2025-01-26 20:30] MED LIST changes: +AMOXICILLIN500 MG PO
--- OUTSIDE RECORDS SUMMARY | 2025-01-26 20:37 | XMS ---
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/[place]: [facility] FAMILY PHONE: [phone] MIRIAM MALAGON [facility]/[place]: [facility] PHONE: Unknown DORIS LAGUNAS Current PHONE: [phone] Jose Alejandro has no Care Guidelines for this patient. ELucio VISIT COUNT (12 MO.) JESUS MANUEL [facility] TOTAL 3 NOTE: Visits indicate total known visits. ED/UCC VISIT TRACKING (12 MO.) 01/26/2025 20:30 [facility] TYPE: Emergency COMPLAINT: - FALL 01/13/2025 17:25 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
[2025-01-26 21:03] LABS: BASOPHILS 0.8 % (0-2); EOSINOPHILS 2.7 % (0-6); HEMATOCRIT 32.9 % (35.0-50.0); HEMOGLOBIN 11.3 g/dL (12.0-18.0); LYMPHOCYTES 35.9 % (24-44); MCH 29.9 (27-36); MCHC 34.3 g/dl (30-36); MCV 87.1 fl (81-99); MONOCYTES 12.7 % (0-12); NEUTROPHILS 47.9 % (39-80); PLATELET COUNT 338 K/uL (140-440); RBC 3.78 M/ul (4.3-5.7); RDW 14.6 (10.5-15.0)
[2025-01-26 21:13] LABS: INR 0.97 (0.80-1.30); PROTIME 12.8 Sec (11.2-14.2)
[2025-01-26 21:24] LABS: ALBUMIN 3.7 g/dL (3.4-5.0); ALBUMIN/GLOBULIN RATIO 0.97 (1.1-2.4); BILIRUBIN, TOTAL 0.4 mg/dL (0.2-1.0); BUN/CREATININE RATIO 12.32 (6.0-28.6); CALCIUM 9.2 mg/dL (8.5-10.1); CREATININE, SERUM 0.73 mg/dL (0.55-1.02); MAGNESIUM 1.7 mg/dL (1.8-2.4); PROTEIN, TOTAL 7.5 g/dL (6.4-8.2)
[2025-01-26 23:38] VITALS: BP 147/83
--- NOTE | 2025-01-27 12:53 | EKG ---
[facility] [address] [place], [place] [address] Signed Sinus rhythm with 1st degree AV block Minimal voltage criteria for LVH, may be normal variant ( R in aVL ) Cannot rule out Anterior infarct (cited on or before 01-SEP-2020) Abnormal ECG When compared with ECG of 01-SEP-2020 15:01, No significant change was found Confirmed by Erin Purcell DO ([id number]) on 01/27/2025 12:53:05 PM Electronically Signed By: ERIN PURCELL DO 01/27/25 1253 PATIENT NAME: YRN FINLEY Electrocardiogram DATE OF : 36 PHYSICIAN: ERIN PURCELL DO REPORT #: [id number] REPORT IS CONFIDENTIAL AND NOT TO BE RELEASED WITHOUT AUTHORIZATION
== END 2025-01-27 00:17 | disposition home or self-care (01) ==
LOC: ED 20:30
PROVIDERS: Family Medicine
DX: R20.2 Paresthesia of skin (principal); I10 Essential (primary) hypertension; I69.954 Hemiplegia and hemiparesis following unspecified cerebrovascular disease affecting left non-dominant side; Z88.2 Allergy status to sulfonamides; Z88.5 Allergy status to narcotic agent; Z79.899 Other long term (current) drug therapy
CPT/HCPCS: 36415; 71045; 80053; 83735; 84484; 85025; 85610; 93005; 93010; 99284-25

== ENCOUNTER 2025-10-06 19:49 | Emergency (ER) | payer MEDICARE, OTHER | END 2025-10-07 07:25 | disposition home or self-care (01) | LOC: ED 19:49 | DX: N39.0 Urinary tract infection, site not specified (principal); I10 Essential (primary) hypertension; K21.9 Gastro-esophageal reflux disease without esophagitis; Z88.5 Allergy status to narcotic agent; Z88.2 Allergy status to sulfonamides ==

== ENCOUNTER 2025-10-10 14:38 | Emergency (ER) | payer MEDICARE, OTHER ==
[~2025-10-10] VITALS: Ht 170.2 cm; Wt 85.5 kg
[~2025-10-10 14:38] MED LIST changes: +CEFDINIR300 MG PO; +CEPHALEXIN500 M1 PO; +FLUTICASONE PRO16 GM NAS; +HYDROCHLOROTHIA25 MG PO; +HYDROCODON-ACE1 EA10 PO; +OXYBUTYNIN CHLO10 MG PO; +VENTOLIN HFA18 GM INH
--- OUTSIDE RECORDS SUMMARY | 2025-10-10 14:45 | XMS ---
PreManage Notification: YRN FINLEY Security Wrapping Machine Tender Events No recent Security Events currently on file CRITERIA MET - [facility] - 2 Visits in 30 Days CARE PROVIDERS YARA RAMIREZ Nurse Practitioner: 08/23/2018-Current PHONE: [phone] -Kameron DMD Dentist: Surgical Dental Assistant Current PHONE: [phone] CLAUDIA HAQUE [facility] Current PHONE: Unknown [facility]/[place]: [facility] PHONE: [phone] MIRIAM MALAGON/[place]: [facility] PHONE: Unknown Ed[address] Electrical Designer/Surface Grinder Current PHONE: [phone] DORIS LAGUNAS Current PHONE: [phone] Jose Alejandro has no Care Guidelines for this patient. ELucio VISIT COUNT (12 MO.) 6 JESUS MANUEL [facility] TOTAL 6 NOTE: Visits indicate total known visits. ED/UCC VISIT TRACKING (12 MO.) 10/10/2025 14:[address] [facility] TYPE: Emergency COMPLAINT: - LAB PROBLEM 10/06/2025 19:49 [facility] TYPE: Emergency COMPLAINT: - WEAKNESS DIAGNOSES: - Allergy status to narcotic agent - Allergy status to sulfonamides - Essential (primary) hypertension - Gastro-esophageal reflux disease without esophagitis - Urinary tract infection, site not specified - Weakness 04/14/2025 17:04 [facility] TYPE: Emergency COMPLAINT: - CONSTIPATION DIAGNOSES: - Allergy status to narcotic agent - Allergy status to sulfonamides - Constipation, unspecified - Essential (primary) hypertension - Gastro-esophageal reflux disease without esophagitis - meterman (current) use of inhaled steroids - 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 - Personal history of transient ischemic attack (TIA), and cerebral infarction without residual deficits - Urinary tract infection, site not specified 01/26/2025 20:30 [facility] TYPE: Emergency COMPLAINT: - FALL DIAGNOSES: - Allergy status to narcotic agent - Allergy status to sulfonamides - Essential (primary) hypertension - Hemiplegia and hemiparesis following unspecified cerebrovascular disease affecting left non-dominant side - Other longterm (current) drug therapy - Pain in left arm - Paresthesia of skin 01/13/2025 17:25 [facility] TYPE: Emergency COMPLAINT: - EAR PAIN [...] a natural orifice, initial encounter - 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 TYPE: Emergency COMPLAINT: - CATHETER PROBLEMS DIAGNOSES: - Allergy status to narcotic agent - Allergy status to sulfonamides - Essential (primary) hypertension - Gastro-esophageal reflux disease without esophagitis - Hemiplegia and hemiparesis following cerebral infarction affecting left non-dominant side - Leakage of other urinary catheter, initial encounter - meterman (current) use of bisphosphonates - Other longterm (current) drug therapy - Other mechanical complication of other urinary catheter, initial encounter INPATIENT VISIT TRACKING (12 MO.) No inpatient visits to display in this time frame [id number]
[2025-10-10 15:03] LABS: BASOPHILS 0.8 % (0.1-1.2); EOSINOPHILS 3.1 % (0.7-5.8); LYMPHOCYTES 41.5 % (19.3-51.7); MCH 26.4 PG (25.6-32.2); MCHC 32.6 g/dL (32.2-35.5); MCV 81.2 fL (79.4-94.8); MONOCYTES 12.2 % (4.7-12.5); NEUTROPHILS 41.1 % (34.0-71.1); RBC 3.82 M/uL (3.93-5.22)
[2025-10-10 15:21] LABS: ALT (SGPT) 12.0 U/L (14-59); AST (SGOT) 22.0 U/L (15-37); GLOMERULAR FILTRATION RATE,EST 64.0 mL/min (>60); PROTEIN, TOTAL 7.4 g/dL (6.4-8.2); UREA NITROGEN 10.0 mg/dL (7-18)
[2025-10-10 15:32] LABS: LACTIC ACID, BLOOD 1.0 mmol/L (0.4-2.0)
[2025-10-10] MEDS ORDERED: LEVOFLOXACIN750 MG PO (18:28)
[2025-10-10 20:12] VITALS: BP 159/77
== END 2025-10-10 20:15 | disposition home or self-care (01) ==
LOC: ED 14:38
PROVIDERS: Emergency Medicine
DX: A49.8 Other bacterial infections of unspecified site (principal); I10 Essential (primary) hypertension; K21.9 Gastro-esophageal reflux disease without esophagitis; Z79.899 Other long term (current) drug therapy; Z79.51 Long term (current) use of inhaled steroids; Z88.2 Allergy status to sulfonamides; Z88.5 Allergy status to narcotic agent
CPT/HCPCS: 36415; 71045; 80053; 83605; 85025; 99284-25